=== PATIENT | female | born 1960 | race Caucasian/White ===

== ENCOUNTER → 2017-09-24 | Outpatient (CLI) | payer OTHER | LOC: FIMAGING 08:09 | PROVIDERS: ATTEND Family Medicine | DX: Z12.31 Encounter for screening mammogram for malignant neoplasm of breast (principal) ==

== ENCOUNTER 2018-01-17 13:28 | Emergency (ER) | payer OTHER ==
[2018-01-17] MEDS ORDERED: TDAP ADULT 0.5 ML INJ (BOOSTRIX) IM ONE (13:43)
--- NOTE | 2018-01-17 14:19 | EDPHY ---
H & P Time Seen by Provider: 01/17/18 13:43 HPI/ROS: CHIEF COMPLAINT: Left wrist laceration HISTORY OF PRESENT ILLNESS: 57-year-old female presents to the emergency department with a laceration to her left wrist. The patient was at home just prior to arrival and with cutting a piece of wood using a soft and she accidentally cut the dorsal medial aspect of her left wrist. She was able to control the bleeding with firm direct pressure. Denies any other trauma or injury. She is right-hand dominant. She is unsure of her last tetanus shot. ROS: Denies retained foreign body, numbness or tingling in her fingers, pain in her left elbow or shoulder. Denies symptoms in the right upper extremity. Past Medical/Surgical History: Orthopedic surgery Social History: Smoking Status: Never smoked Physical Exam: On examination the patient has a large 4 cm, flap laceration to the dorsal, medial aspect of her left wrist. Patient appears to have tendon injury. She has normal sensation to light touch with normal 2 point discrimination. She has full range of motion of her left wrist. No evidence of retained foreign body. No palpable bony tenderness. Constitutional: Initial Vital Signs Temperature (C) 36.8 C 01/17/18 13:28 Heart Rate 77 01/17/18 13:28 Respiratory Rate 18 01/17/18 13:28 Blood Pressure 118/80 01/17/18 13:28 O2 Sat (%) 97 01/17/18 13:28 O2 Delivery Mode Room Air Allergies/Adverse Reactions: No Known Allergies Allergy (Verified 01/17/18 13:31) Home Medications: Medication Instructions Recorded Cephalexin [Keflex] 500 mg PO QID #28 cap 01/17/18 MDM/Departure - MDM Imaging Results: Imaging Impressions Wrist X-Ray 01/17/18 14:01 Impression: 1. No acute osseous abnormality seen left wrist. 2. Cutaneous laceration adjacent to the distal ulna. Procedures: Laceration repair. Verbal consent was obtained from the patient. The 5 cm laceration on the dorsal medial left wrist was anesthetized using 1% lidocaine with epinephrine. The wound was irrigated with saline, draped and explored to its base with a gloved finger. Laceration noted to tendon sheath without obvious tendon laceration. The wound was repaired with 4 0 Vicryl, 4 sutures and 4 0 Ethilon, 9 sutures. The wound repair was complex. The procedure was performed by myself. Medications Given: Discontinued Medications Diphtheria/Tetanus/Acell Pertussis (Boostrix) 0.5 ml IM .ONCE ONE Stop: 01/17/18 13:44 Last Admin: 01/17/18 13:55 Dose: 0.5 ml ED Course/Re-evaluation: 57-year-old female presents to the emergency department with laceration to the left wrist. The wound was repaired, see procedure note. Patient has a deep wound without obvious tendon laceration noted. X-rays reveal no fractures. The wound was repaired. The patient will be treated with oral Keflex given the depth of the wound and proximity to the joint. This was thoroughly irrigated and was clean. She was placed in Velcro wrist splint and given orthopedic hand surgical referral for follow-up in next 2-3 days. She was comfortable with this plan. She was given wound care precautions. Case was discussed with Dr. Christiano Prescott, secondary supervising physician, who did not directly evaluate the patient but agrees with treatment and plan. - Depart Disposition: Home, Routine, Self-Care Clinical Impression: Laceration of left wrist Qualifiers: Encounter type: initial encounter Qualified Code(s): S61.512A - Laceration without foreign body of left wrist, initial encounter Condition: Good Instructions: Care For Your Stitches (ED), Laceration (ED), Acute Wounds (ED) Additional Instructions: Wound Care Follow-Up: Removal of sutures in 10 days. Suture removal is complimentary in uncomplicated cases. Infection or abnormal findings would require reevaluation by the MD. In that case, you may be billed. Return if you notice any signs or symptoms of infection such as redness, swelling, increased pain, fever, purulent drainage. Keep wound dry, clean and protected. Keflex 500 mg 4 times daily for 1 week. Keep splint on until follow-up with orthopedic hand surgeon in 2 days to recheck. Prescriptions: Cephalexin [Keflex] 500 mg PO QID #28 cap Referrals: Costa Evans MD [Medical Doctor] - 2-3 days without fail (Orthopedic hand surgeon on-call)
[2018-01-17 16:35] VITALS: BP 120/63
== END 2018-01-17 16:34 | disposition home or self-care (01) ==
PROC: 0HQEXZZ Repair Left Lower Arm Skin, External Approach (ICD-10-PCS; principal; 2018-01-17)
DX: S61.512A Laceration without foreign body of left wrist, initial encounter (principal); Z23 Encounter for immunization; W45.8XXA Other foreign body or object entering through skin, initial encounter
CPT/HCPCS: L3908

== ENCOUNTER → 2018-11-10 | Outpatient (CLI) | payer OTHER | LOC: FIMAGING 10:07 | PROVIDERS: ATTEND Family Medicine | DX: Z12.31 Encounter for screening mammogram for malignant neoplasm of breast (principal) ==